=== PATIENT | female | born 1930 | race Caucasian/White ===

== ENCOUNTER 2017-03-11 16:15 | Inpatient (IN) ==
[2017-03-11] MEDS ORDERED: Azithromycin 500 MG in D5% in Water 250 ML IVPB ONE (16:47)
--- NOTE | 2017-03-11 16:58 | Emergency Department Note ---
Disposition Clinical Impression: Multifocal pneumonia Disposition: Admitted As Inpatient Condition: Fair General Adult HPI - General Chief complaint: ED General Medical Stated complaint: Generalized weakness Time Seen by Provider: 03/11/17 16:20 Source: patient, family Limitations: no limitations Nursing Notes Reviewed: Yes Vital Signs Reviewed: Yes - History of Present Illness HPI Narrative: 86-year-old female presents to the ED with generalized weakness via ambulance. Patient has no stated medical history and currently takes no medications. She is a very healthy and normally energetic female according to daughter. Patient states she has felt weak for the past few days to where she is unable to get out of bed even put her clothes on. She came in today because she was unable to get out of bed and cannot do her normal daily tasks. She states that she has had a cough for about a week and has been able to cough up some sputum some green some yellow and some clear says that it changes daily. Patient states she has no pain, no hemoptysis, no neuro deficits, no nausea vomiting, no headaches, no chest pain, no urinary problems or diarrhea. He has not had a fever states her highest temperature she has had is 99.1, 2 days ago. Pain Scale: 0 - Related Data Home Medications Medication Instructions Recorded Confirmed Cod Liver Oil 1 each PO DAILY 03/11/17 03/11/17 Krill Oil 500 mg PO DAILY 03/11/17 03/11/17 Multivitamin [Multi-Day Vitamins] 1 each PO DAILY 03/11/17 03/11/17 [place]-3 Fatty Acids [Fish Oil] 300 mg PO DAILY 03/11/17 03/11/17 Vitamin B Complex 1 each PO DAILY 03/11/17 03/11/17 Allergies Allergy/AdvReac Type Severity Reaction Status Date / Time No Known Allergies Allergy Verified 11/04/16 19:13 Constitutional: Reports: weakness, weight change (5lbs in 2 months). Denies: fever, chills Eyes: Denies: eye pain, eye discharge, vision change ENT ED: Denies: ear pain, throat pain, dental pain, hearing loss, epistaxis, congestion, dysphagia Cardiovascular: Denies: chest pain, palpitations, dyspnea on exertion, edema, syncope Respiratory: Reports: cough. Denies: wheezes, hemoptysis, stridor Gastrointestinal: Denies: abdominal pain, nausea, vomiting, diarrhea, constipation, hematemesis, melena, hematochezia Genitourinary: Reports: as per HPI. Denies: urgency, dysuria, frequency, hematuria Musculoskeletal: Denies: back pain, neck pain, arthralgia, myalgia Integumentary: Denies: rash, abrasion, lesions Neurological: Reports: weakness. Denies: headache, numbness, paresthesias, confusion, abnormal gait, vertigo Psychiatric: Denies: anxiety, depression, suicidal thoughts, homicidal thoughts , auditory hallucinations, visual hallucinations Endocrine: Reports: as per HPI, fatigue. Denies: heat or cold intolerance Hematological/Lymphatic: Denies: easy bleeding, easy bruising Past Medical History - Past Medical History Medical history: Reports: non-contributory Psychiatric history: Reports: no psych history - Social History Smoking Status: Former smoker Smokeless Tobacco Status: No Alcohol use: Reports: none Drug use: Reports: none Physical Exam - General Limitations: no limitations General appearance: alert, in no apparent distress - Head Head exam: atraumatic, normocephalic, normal inspection - Eye Eye exam: Present: normal appearance, PERRL - ENT ENT exam: mucous membranes moist, TM's normal bilaterally - Chest Chest inspection: Present: normal inspection, symmetric chest wall rise - Respiratory Respiratory exam: Present: normal lung sounds bilaterally. Absent: wheezes, stridor - Cardiovascular Cardiovascular exam: Present: regular rate, normal rhythm, normal heart sounds - Abdominal Exam Abdominal exam: Present: soft, Non-Tender. Absent: tenderness, distention, guarding, rebound, rigidity - Back Exam Back exam: Present: normal inspection, full ROM. Absent: tenderness - Neurological Exam Neurological exam: Present: alert, oriented X3 - Skin Skin exam: Present: warm, dry, intact, pallor Course Course Narrative: 86-year-old female presents to the ED with generalized weakness. With heart rate greater than 90 respirations at 35 she currently meets SIRS criteria will start sepsis protocol. We will order CBC, CM,P and lactate, BNP and ,chest x- ray, CT chest without contrast, blood cultures and start her on antibiotics 500 mg azithromycin and 1 g of ceftriaxone is probably community-acquired pneumonia. Vital Signs Temperature 98.3 F 03/11/17 16:17 Pulse Rate 123 03/11/17 16:17 Respiratory Rate 22 03/11/17 16:17 Blood Pressure 137/87 03/11/17 16:17 O2 Sat by Pulse Oximetry 98 03/11/17 16:17 Temperature 98.3 F 03/11/17 16:17 Pulse Rate 116 03/11/17 18:09 Respiratory Rate 24 03/11/17 19:24 Blood Pressure 139/73 03/11/17 18:09 O2 Sat by Pulse Oximetry 96 03/11/17 19:24 Oxygen Delivery Oxygen Delivery Nasal Cannula Medical Decision Making - MDM Narrative Medical decision making narrative: He 6-year-old female presents to the ED with generalized weakness. She currently has no medical problems and takes no medications. She meets sepsis criteria by being tachycardic at a rate of 123 and respirations greater than 30. We will start sepsis protocol and give her 500 mg of azithromycin and 1 g of ceftriaxone. Will order blood cultures. We will also fluid resuscitate her with 2000 mL IV bolus of normal saline. 1946-after evaluating the patient she stated that she is still tired and weak and still has a hard time breathing I ordered a DuoNeb and after that treatment she stated that she did feel a little bit better with her breathing and was coughing up a lot more green gunk. Patient's labs came back she has a white count of 19,000 and all other labs were relatively normal. Due to the CT scan coming back showing multifocal bilateral pneumonia the decision to admit was made. I talked with Dr. Pantoja who accepted the patient to telemetry. I told the patient this plan and her and family both agreed that this would be the best way to go forward. Chest X-Ray 03/11/17 16:35 IMPRESSION: Possible acute right lower lobe infiltrate which could represent pneumonia. Otherwise, stable chest D/ / Kyle Rose MD / Kyle Rose MD Interpreting Provider: Kyle Rose MD Chest CT 03/11/17 16:47 IMPRESSION: 1. Patchy bilateral areas of consolidation, most compatible with multifocal pneumonia. These must be followed resolution. 2. Findings are superimposed on a background of fibrosis, especially within the upper lungs. 3. Mild dilation of the ascending thoracic aorta measuring 4.1 cm, unchanged when compared to the previous exam D/ / Boogie Hudson MD / Boogie Hudson MD Interpreting Provider: Boogie Hudson MD - Medical Records Medical records reviewed: Yes I reviewed the patient's medical records. - Lab Data Lab results reviewed: Yes I reviewed the patient's lab results. Result diagrams: 03/11/17 17:32 03/11/17 17:32 Lab Results 03/11/17 03/11/17 03/11/17 Range/Units 17:32 17:32 17:32 WBC 19.0 H (4.3-11.1) K/mcL RBC 3.95 (3.82-4.97) M/mcL Hgb 12.5 (11.5-15.4) g/dL Hct 37.6 (35.3-44.9) % MCV 95.2 (83.0-100.0) fL MCH 31.6 (28.0-33.3) pg MCHC 33.2 (31.6-35.5) g/dL RDW 11.9 (11.5-14.5) % Plt Count 345 (140-400) K/mcL MPV 10.6 (9.4-12.4) fL Immature Gran % 0.6 (0-4) % Seg Neutrophils % 85.5 % Lymphocytes % 5.7 % Monocytes % 7.8 % Eosinophils % 0.1 % Basophils % 0.3 % Neutrophils # 16.3 H (1.6-8.9) K/mcL Lymphocytes # 1.1 (0.6-4.6) K/mcL Monocytes # 1.5 H (0.0-1.3) K/mcL Eosinophils # 0.0 (0.0-0.6) K/mcL Basophils # 0.1 (0.0-0.2) K/mcL VBG pH (7.32-7.42) pH Units VBG pCO2 (41-51) mmHg VBG pO2 (25-40) mmHg VBG HCO3 (21-27) mEq/L Sodium 136 (136-145) mEq/L Potassium 3.8 (3.5-4.5) mEq/L Chloride 103 (98-109) mEq/L Carbon Dioxide 23 (19-29) mEq/L BUN 7 (7-20) mg/dL Creatinine 0.70 (0.57-1.11) mg/dL Est GFR ( Amer) > 60 (> 60) Est GFR (Non-Af Amer) > 60 (> 60) BUN/Creatinine Ratio 10 (6-26) Glucose 146 H (70-99) mg/dL Calculated Osmolality 283 (280-300) Lactic Acid (0.5-2.2) mmol/L Calcium 9.8 (8.6-10.8) mg/dL Phosphorus (2.3-4.7) mg/dL Magnesium (1.6-2.6) mg/dL Total Bilirubin 0.6 (0.2-1.2) mg/dL Direct Bilirubin (0.0-0.5) mg/dL Indirect Bilirubin (0.0-1.2) mg/dL AST 38 H (5-34) Units/L ALT 37 (0-55) Units/L Alkaline Phosphatase 151 H (38-126) Units/L Troponin I 0.01 (0-0.03) ng/mL B-Natriuretic Peptide (0-100) pg/mL Serum Total Protein 7.0 (6.0-8.3) g/dL Albumin 2.5 L (3.5-5.0) g/dL Globulin 4.5 H (2.4-3.5) g/dL Albumin/Globulin Ratio 0.6 L (1.1-2.2) Urine Color (Yellow) Urine Clarity (Clear) Urine pH (5.0-8.0) pH Units Ur Specific [place] (1.010-1.025) Urine Protein (Neg-Trace) mg/dL Urine Glucose (UA) (Normal) mg/dL Urine Ketones (Negative) mg/dL Urine Blood (Negative) Urine Nitrite (Negative) Urine Bilirubin (Negative) Urine Urobilinogen (Normal) mg/dL Ur Leukocyte Esterase (Negative) Urine Microscopic RBC (0-3) per hpf Urine Microscopic WBC (0-3) per hpf Ur Squamous Epith Cells Urine Bacteria (None-Few) per hpf Hyaline Casts Ur Culture Indicated? (NO) 03/11/17 03/11/17 03/11/17 Range/Units 17:32 17:32 17:32 WBC (4.3-11.1) K/mcL RBC (3.82-4.97) M/mcL Hgb (11.5-15.4) g/dL Hct (35.3-44.9) % MCV (83.0-100.0) fL MCH (28.0-33.3) pg MCHC (31.6-35.5) g/dL RDW (11.5-14.5) % Plt Count (140-400) K/mcL MPV (9.4-12.4) fL Immature Gran % (0-4) % Seg Neutrophils % % Lymphocytes % % Monocytes % % Eosinophils % % Basophils % % Neutrophils # (1.6-8.9) K/mcL Lymphocytes # (0.6-4.6) K/mcL Monocytes # (0.0-1.3) K/mcL Eosinophils # (0.0-0.6) K/mcL Basophils # (0.0-0.2) K/mcL VBG pH (7.32-7.42) pH Units VBG pCO2 (41-51) mmHg VBG pO2 (25-40) mmHg VBG HCO3 (21-27) mEq/L Sodium (136-145) mEq/L Potassium (3.5-4.5) mEq/L Chloride (98-109) mEq/L Carbon Dioxide (19-29) mEq/L BUN (7-20) mg/dL Creatinine (0.57-1.11) mg/dL Est GFR ( Amer) (> 60) Est GFR (Non-Af Amer) (> 60) BUN/Creatinine Ratio (6-26) Glucose (70-99) mg/dL Calculated Osmolality (280-300) Lactic Acid 1.3 (0.5-2.2) mmol/L Calcium (8.6-10.8) mg/dL Phosphorus 2.7 (2.3-4.7) mg/dL Magnesium 1.7 (1.6-2.6) mg/dL Total Bilirubin 0.6 (0.2-1.2) mg/dL Direct Bilirubin 0.3 (0.0-0.5) mg/dL Indirect Bilirubin 0.3 (0.0-1.2) mg/dL AST 39 H (5-34) Units/L ALT 38 (0-55) Units/L Alkaline Phosphatase 154 H (38-126) Units/L Troponin I (0-0.03) ng/mL B-Natriuretic Peptide 25 (0-100) pg/mL Serum Total Protein 7.0 (6.0-8.3) g/dL Albumin 2.5 L (3.5-5.0) g/dL Globulin 4.5 H (2.4-3.5) g/dL Albumin/Globulin Ratio 0.6 L (1.1-2.2) Urine Color (Yellow) Urine Clarity (Clear) Urine pH (5.0-8.0) pH Units Ur Specific [place] (1.010-1.025) Urine Protein (Neg-Trace) mg/dL Urine Glucose (UA) (Normal) mg/dL Urine Ketones (Negative) mg/dL Urine Blood (Negative) Urine Nitrite (Negative) Urine Bilirubin (Negative) Urine Urobilinogen (Normal) mg/dL Ur Leukocyte Esterase (Negative) Urine Microscopic RBC (0-3) per hpf Urine Microscopic WBC (0-3) per hpf Ur Squamous Epith Cells Urine Bacteria (None-Few) per hpf Hyaline Casts Ur Culture Indicated? (NO) 03/11/17 03/11/17 03/11/17 Range/Units 17:32 19:20 19:32 WBC (4.3-11.1) K/mcL RBC (3.82-4.97) M/mcL Hgb (11.5-15.4) g/dL Hct (35.3-44.9) % MCV (83.0-100.0) fL MCH (28.0-33.3) pg MCHC (31.6-35.5) g/dL RDW (11.5-14.5) % Plt Count (140-400) K/mcL MPV (9.4-12.4) fL Immature Gran % (0-4) % Seg Neutrophils % % Lymphocytes % % Monocytes % % Eosinophils % % Basophils % % Neutrophils # (1.6-8.9) K/mcL Lymphocytes # (0.6-4.6) K/mcL Monocytes # (0.0-1.3) K/mcL Eosinophils # (0.0-0.6) K/mcL Basophils # (0.0-0.2) K/mcL VBG pH 7.30 L (7.32-7.42) pH Units VBG pCO2 49 (41-51) mmHg VBG pO2 44 H (25-40) mmHg VBG HCO3 24.1 (21-27) mEq/L Sodium (136-145) mEq/L Potassium (3.5-4.5) mEq/L Chloride (98-109) mEq/L Carbon Dioxide (19-29) mEq/L BUN (7-20) mg/dL Creatinine (0.57-1.11) mg/dL Est GFR ( Amer) (> 60) Est GFR (Non-Af Amer) (> 60) BUN/Creatinine Ratio (6-26) Glucose (70-99) mg/dL Calculated Osmolality (280-300) Lactic Acid 1.2 (0.5-2.2) mmol/L Calcium (8.6-10.8) mg/dL Phosphorus (2.3-4.7) mg/dL Magnesium (1.6-2.6) mg/dL Total Bilirubin (0.2-1.2) mg/dL Direct Bilirubin (0.0-0.5) mg/dL Indirect Bilirubin (0.0-1.2) mg/dL AST (5-34) Units/L ALT (0-55) Units/L Alkaline Phosphatase (38-126) Units/L Troponin I (0-0.03) ng/mL B-Natriuretic Peptide (0-100) pg/mL Serum Total Protein (6.0-8.3) g/dL Albumin (3.5-5.0) g/dL Globulin (2.4-3.5) g/dL Albumin/Globulin Ratio (1.1-2.2) Urine Color Yellow (Yellow) Urine Clarity Clear (Clear) Urine pH 6.5 (5.0-8.0) pH Units Ur Specific [place] 1.006 L (1.010-1.025) Urine Protein Trace (Neg-Trace) mg/dL Urine Glucose (UA) Normal (Normal) mg/dL Urine Ketones Trace H (Negative) mg/dL Urine Blood Small H (Negative) Urine Nitrite Negative (Negative) Urine Bilirubin Negative (Negative) Urine Urobilinogen Normal (Normal) mg/dL Ur Leukocyte Esterase Negative (Negative) Urine Microscopic RBC 0-3 (0-3) per hpf Urine Microscopic WBC 0-3 (0-3) per hpf Ur Squamous Epith Cells Test Not Performed Urine Bacteria Few (None-Few) per hpf Hyaline Casts Test Not Performed Ur Culture Indicated? NO (NO) - Radiology Data Radiology results reviewed: Yes I reviewed the patient's radiology results. - EKG Data EKG #1 EKG attestation: Yes I reviewed and interpreted this EKG. EKG results narrative: EEG done at 1625 shows sinus tachycardia rate of 123, MO 170 QRS 82 QTC 371. R- wave progression normal, no signs of ST elevation or ST changes. No T-wave changes. No signs of blocks. No signs of WPW or Brugada syndrome. Compared with old EKG on 03/20/13 which shows sinus bradycardia there are no acute changes when compared to the old one. EKG shows normal: sinus rhythm Rate: tachycardia Rhythm: NSR [place]/QRS: left axis deviation When compared to previous EKG there are: changes noted (Sinus tachycardia) Interpretation: no acute changes Attestation Statement - Attestation Attestation: I examined this patient and my medical decision-making was reviewed with the REBAR BENDER/PA/Advanced Practice Nurse/Resident Physician. I agree with the documented findings, disposition and treatment plan as described except to the extent set forth below. Female patient with multifocal pneumonia. Sepsis protocol was initiated. 30 mL per kilogram fluid boluses was initiated additionally she received over a fourth meter acquired pneumonia. Ceftriaxone and azithromycin. Cultures were sent. CT shows an confirmed multifocal pneumonia. Proceed with admission, vital signs have improved. Stable at time of admission with mild tachycardia.
[2017-03-11] MEDS: 0.9 % Sodium Chloride 1,000 ML IVC SCH ×2 (17:05→18:43)
[2017-03-11 17:43] LABS: VBG HCO3 24.1 mEq/L (21-27); VBG PH 7.3 pH Units (7.32-7.42)
[2017-03-11 17:50] LABS: Basophils # 0.1 K/mcL (0.0-0.2); Basophils % 0.3 %; Eosinophils % 0.1 %; Hematocrit 37.6 % (35.3-44.9); Hemoglobin 12.5 g/dL (11.5-15.4); Immature Granulocytes % 0.6 % (0-4); Lymphocytes # 1.1 K/mcL (0.6-4.6); Lymphocytes % 5.7 %; Mean Corpuscular HGB Conc 33.2 g/dL (31.6-35.5); Mean Corpuscular Hemoglobin 31.6 pg (28.0-33.3); Mean Corpuscular Volume 95.2 fL (83.0-100.0); Mean Platelet Volume 10.6 fL (9.4-12.4); Monocytes # 1.5 K/mcL (0.0-1.3); Monocytes % 7.8 %; Neutrophils # 16.3 K/mcL (1.6-8.9); Platelet Count 345 K/mcL (140-400); Red Blood Count 3.95 M/mcL (3.82-4.97); Red Cell Distribution Width 11.9 % (11.5-14.5); Segmented Neutrophils % 85.5 %
[2017-03-11 17:57] LABS: Albumin 2.5 g/dL (3.5-5.0); Albumin/Globulin Ratio 0.6 (1.1-2.2); Bilirubin,Direct 0.3 mg/dL (0.0-0.5); Bilirubin,Indirect 0.3 mg/dL (0.0-1.2); Bilirubin,Total 0.6 mg/dL (0.2-1.2); Globulin 4.5 g/dL (2.4-3.5); Magnesium 1.7 mg/dL (1.6-2.6); Phosphorous 2.7 mg/dL (2.3-4.7)
[2017-03-11 17:58] LABS: Alanine Aminotransferase 37 Units/L (0-55); Albumin 2.5 g/dL (3.5-5.0); Albumin/Globulin Ratio 0.6 (1.1-2.2); Alkaline Phosphatase 151 Units/L (38-126); Aspartate Amino Transferase 38 Units/L (5-34); BUN/Creatinine Ratio 10 (6-26); Bilirubin,Total 0.6 mg/dL (0.2-1.2); Blood Urea Nitrogen 7 mg/dL (7-20); Calcium 9.8 mg/dL (8.6-10.8); Carbon Dioxide 23 mEq/L (19-29); Chloride 103 mEq/L (98-109); Globulin 4.5 g/dL (2.4-3.5); Glucose 146 mg/dL (70-99); Osmolality,Calculated 283 (280-300); Potassium 3.8 mEq/L (3.5-4.5); Sodium 136 mEq/L (136-145); eGFR For African Americans > 60 (> 60); eGFR For Non-African Americans > 60 (> 60)
[2017-03-11] MEDS ORDERED: Ipratropium/Albuterol Neb 3 ML IH ONE (18:52)
[2017-03-11 19:37] LABS: Bilirubin,Urine Negative (Negative); Blood,Urine Small (Negative); Clarity,Urine Clear (Clear); Color,Urine Yellow (Yellow); Glucose,Urine (UA) Normal (Normal); Ketones,Urine Trace mg/dL (Negative); Leukocyte Esterase,Urine Negative (Negative); Nitrite,Urine Negative (Negative); PH,Urine 6.5 pH Units (5.0-8.0); Protein,Urine Trace mg/dL (Neg-Trace); Specific Gravity,Urine 1.006 (1.010-1.025); Urobilinogen,Urine Normal (Normal)
[2017-03-11 19:56] LABS: Bacteria,Urine Few per hpf (None-Few); RBC,Urine 0-3 per hpf (0-3); WBC,Urine 0-3 per hpf (0-3)
--- NOTE | 2017-03-11 22:56 | Internal Med History&Physical ---
<ZarateLuis Alberto - Last Filed: 03/11/17 23:50> Date of Encounter: 03/11/17 Time of Encounter: 22:53 Assessment and Plan (1) Multifocal pneumonia Current visit: Yes Status: Acute As confirmed by chest CT, she has multilobar pnuemonia She did receive Rocephin and Zithromax in the ED, which we will continue here to treat community acquired pneumonia No lactic acidosis nor signs of end organ dysfunction; does not make her eligible for sepsis Blood cultures collected, await results and sensitivities prior to de- escalation of antibiotic regimen Supportive measures with breathing treatments and Robitussin as needed (2) Aortic stenosis with bicuspid valve Current visit: Yes Status: Chronic Last echo performed in June 2015 confirmed moderate-severe aortic stenosis with preserved EF; she was recommended to get a LEONARD for further evaluation but declined the procedure No signs of overt heart failure at this point, so will have her continue her home ASA (3) DVT prophylaxis Current visit: Yes Status: Acute Heparin 5000 units BID Internal Medicine - H&P: HPI Chief complaint: generalized weakness Admitted From: Home Plans for Post Hospital Care: Home History of present illness: Ms. Schofield is a 86 year old female who presents to the emergency department with generalized weakness over the past week. She states that the weakness has been gradually worsening and she has an associated productive cough of green and yellow sputum during this time as well. She states that she gets "muscle pain" when she coughs. Denies any shortness of breath, nausea, vomiting, fevers, or urinary complaints. Patient is normally very healthy and only takes aspirin and multivitamins. She denies any sick contacts or recent travels. She does report hospitalization for pneumonia 4 years ago and feels this episode is similar to when she had pneumonia in the past. Patient lives at home with her daughter and is independent in activities daily life and has no issues with ambulation. Past Med Surg Social Fam HX - Past Medical History Medical history: non-contributory Psychiatric history: no psych history - Past Surgical History Surgical History: hysterectomy - Social History Smoking Status: Former smoker Smokeless Tobacco Status: No Alcohol use: none Drug use: none Internal Medicine - H&P: Meds Cod Liver Oil 1 each PO DAILY 03/11/17 [History] Krill Oil 500 mg PO DAILY 03/11/17 [History] Multivitamin [Multi-Day Vitamins] 1 each PO DAILY 03/11/17 [History] [place]-3 Fatty Acids [Fish Oil] 300 mg PO DAILY 03/11/17 [History] Vitamin B Complex 1 each PO DAILY 03/11/17 [History] Allergies No Known Allergies Allergy (Verified 11/04/16 19:13) All Systems PM: A 10-system review of systems was performed and is negative for pertinent findings except as documented above in the HPI. - Constitutional Constitutional: weakness (generalized), no chills, no fever(s), no night sweats - EENT Eyes: no change in vision, no discharge, no pain, no photophobia Ears: no ear discharge, no ear pain, no tinnitus Nose, mouth and throat: no dysphagia, no nasal discharge, no neck pain, no sore throat - Cardiovascular Cardiovascular ROS IM: no chest pain, no diaphoresis, no dyspnea, no lightheadedness, no palpitations, no syncope - Respiratory Respiratory: cough, excessive phlegm production, change in phlegm color, pain with cough, no dyspnea, no wheezing - Gastrointestinal Gastrointestinal: diarrhea, no abdominal pain, no hematemesis, no hematochezia, no melena, no nausea, no vomiting - Genitourinary Genitourinary: no change in urinary stream, no dysuria, no flank pain, no hematuria - Musculoskeletal Musculoskeletal ROS IM: no numbness, no tingling - Integumentary Integumentary IM: no rash, no unusual bruising - Neurological Neurological ROS: no confusion, no convulsions, no focal weakness, no numbness, no tingling, no tremor(s) - Constitutional Vitals: Temp Pulse Resp BP Pulse Ox 98.9 F 102 14 129/74 98 03/11/17 21:59 03/11/17 21:59 03/11/17 21:59 03/11/17 21:59 03/11/17 21:59 General appearance: Present: cooperative, pleasant, no acute distress, answers questions appropriately - Head Head exam: Present: atraumatic, normocephalic - Eye Eye exam: Present: PERRL, conjuntiva pink, sclera anicteric - Neck Neck exam general surgery: Present: supple, trachea midline. Absent: lymphadenopathy - Respiratory Respiratory exam: Present: wheezes. Absent: accessory muscle use, rales, rhonchi - Cardiovascular Cardiovascular exam: Present: +S1, +S2, tachycardia. Absent: diastolic murmur, gallop, rubs, systolic murmur - GI/Abdominal GI/Abdominal exam: Present: normal bowel sounds, soft, no peritoneal signs. Absent: distended, tenderness - Extremities Exam Extremities exam: Present: warm, radial pulses palpable and symetrical. Absent : calf tenderness, cyanotic, pedal edema - Neurological Exam Neurological exam: Present: alert, no focal deficits. Absent: facial droop, speech deficit - Skin Skin exam: Present: dry, intact Internal Med - H&P Results - Labs CBC & Chem 7: 03/11/17 17:32 03/11/17 17:32 <Brandon Pantoja - Last Filed: 03/12/17 02:26> Date of Encounter: 03/12/17 Past Med Surg Social Fam HX - Family History Mother Living Status: Hx Family Cardiac Disorders: No Hx Family Respiratory Disorders: No Father Living Status: Hx Family Cardiac Disorders: No Hx Family Respiratory Disorders: No - Constitutional Constitutional: chills, weakness, no fever(s), no night sweats - EENT Eyes: no blurry vision, no change in vision Ears: no ear pain, no tinnitus Nose, mouth and throat: nasal congestion, sinus pressure - Cardiovascular Cardiovascular ROS IM: no chest pain, no syncope - Respiratory Respiratory: cough, chest congestion, excessive phlegm production, change in phlegm color, pain with cough - Gastrointestinal Gastrointestinal: diarrhea, no abdominal pain, no nausea, no vomiting - Genitourinary Genitourinary: no dysuria - Musculoskeletal Musculoskeletal ROS IM: no arthralgias, no back pain - Neurological Neurological ROS: no dizziness, no focal weakness, no frequent falls - Psychiatric Psychiatric: no anxiety, no depression - Endocrine Endocrine IM: no cold intolerance, no heat intolerance - Hematologic/Lymphatic Hematologic/Lymphatic: no easy bruising, no lymphadenopathy - Allergic/Immunologic Allergic/Immunologic: wheezing, no uticaria, no GI upset with certain foods - Constitutional Vitals: Temp Pulse Resp BP Pulse Ox 98.9 F 102 14 129/74 98 03/11/17 21:59 03/11/17 21:59 03/11/17 21:59 03/11/17 21:59 03/11/17 22:42 General appearance: Present: cooperative, A&O X 3, pleasant, no acute distress - Head Head exam: Present: normal inspection - Eye Eye exam: Present: EOMI, PERRL. Absent: scleral icterus - ENT ENT exam: Present: mucous membranes moist, normal exam - Neck Neck exam general surgery: Present: full ROM, supple. Absent: tenderness - Expanded Neck Exam Neck exam: Absent: carotid bruit - Respiratory Respiratory exam: Present: rales (left base and RUL ), wheezes. Absent: chest wall tenderness, CTAB, respiratory distress, tachypnea - Cardiovascular Cardiovascular exam: Present: RRR, +S1, +S2. Absent: JVD - GI/Abdominal GI/Abdominal exam: Present: normal bowel sounds, soft. Absent: hepatomegaly, splenomegaly, tenderness - Extremities Exam Extremities exam: Present: warm. Absent: pedal edema, tenderness - Back Exam Back exam: Present: normal inspection. Absent: CVA tenderness (L), CVA tenderness (R) - Neurological Exam Neurological exam: Present: alert, CN II-XII intact, oriented X3, no focal deficits - Psychiatric Psychiatric exam: Present: normal affect, normal mood - Skin Skin exam: Present: dry, warm. Absent: rash Internal Med - H&P Results - Labs CBC & Chem 7: 03/11/17 17:32 03/11/17 17:32 - Diagnostic Studies Chest x-ray Status: image reviewed by me (hyperinflated; borderline cardiomegaly; I do not appreciate significant infiltrates) CT scan - chest Additional comments: Report reviewed -- multifocal pneumonia - Attending Attestation I discussed the patient KALSKAG, PMH, ROS, lab data, and exam findings with Dr. Zarate. I then saw and examined patient independently as well. Patient admits to having SOB, productive cough, and chills for the last week or so. She denies any fevers or night sweats. She has had increasing weakness and fatigue since then, which prompted her to go to the ER. She is a former smoker and quit many years ago (>40 years ago). On exam, she has crackles and splinting consistent with pneumonia. She has no clinical signs of sepsis in my opinion, and I agree with Dr. Zarate. She is hopeful to be discharged soon and return to her daily activities. Other than my comments noted above and noted exam findings, I agree with Dr. Zarate's assessment and plan.
[2017-03-11] MEDS ORDERED: Acetaminophen 325 MG TABLET PO PRN (23:13)
[2017-03-11] MEDS ORDERED: Naloxone 0.4 MG/ML INJ IVP PRN (23:13)
[2017-03-11] MEDS ORDERED: Ondansetron ODT 4 MG TAB.RAPDIS SL PRN (23:13)
[2017-03-11] MEDS ORDERED: Ipratropium/Albuterol Neb 3 ML IH PRN (23:20)
[2017-03-12] MEDS: *HR* Heparin 5,000 UNIT/ML VIAL SQ SCH ×2 (05:39→16:59)
[2017-03-12 06:00] LABS: Basophils % 0.2 %; Eosinophils # 0.1 K/mcL (0.0-0.6); Eosinophils % 0.3 %; Hematocrit 37.1 % (35.3-44.9); Hemoglobin 11.9 g/dL (11.5-15.4); Immature Granulocytes % 0.7 % (0-4); Lymphocytes # 1.4 K/mcL (0.6-4.6); Lymphocytes % 7.9 %; Mean Corpuscular HGB Conc 32.1 g/dL (31.6-35.5); Mean Corpuscular Hemoglobin 30.4 pg (28.0-33.3); Mean Corpuscular Volume 94.9 fL (83.0-100.0); Mean Platelet Volume 11.2 fL (9.4-12.4); Monocytes # 1.4 K/mcL (0.0-1.3); Neutrophils # 14.7 K/mcL (1.6-8.9); Platelet Count 327 K/mcL (140-400); Red Blood Count 3.91 M/mcL (3.82-4.97); Segmented Neutrophils % 82.9 %
[2017-03-12 06:14] LABS: BUN/Creatinine Ratio 7 (6-26); Blood Urea Nitrogen 4 mg/dL (7-20); Calcium 9.4 mg/dL (8.6-10.8); Carbon Dioxide 26 mEq/L (19-29); Chloride 107 mEq/L (98-109); Glucose 114 mg/dL (70-99); Osmolality,Calculated 286 (280-300); Potassium 3.6 mEq/L (3.5-4.5); Sodium 139 mEq/L (136-145); eGFR For African Americans > 60 (> 60); eGFR For Non-African Americans > 60 (> 60)
[2017-03-12 06:42] LABS: Large Platelets Present (Not Present); Platelet Estimate Normal (Normal); Reactive Lymphocytes Present (Not Present); Toxic Granulation Present (Not Present)
[2017-03-12] MEDS: Aspirin Enteric Coated 81 MG Tablet PO SCH (08:33)
--- NOTE | 2017-03-12 10:09 | Electrocardiograph Report ---
[address] [address] Test Date: 2017-03-11 Pat Name: Aissatou Schofield Department: [id number] Room: 3A Gender: F Machine Stitcher: AMELIA : 1930 Requested By: Quique Kaminski Order Number: [id number] Reading MD: Clara Huddleston Measurements Intervals [place] Rate: 123 P: 86 IA: 170 QRS: -48 QRSD: 82 T: 70 QT: 298 QTc: 371 Interpretive Statements SINUS TACHYCARDIA LEFT ANTERIOR FASCICULAR BLOCK Electronically Signed On 03-12-2017 10:08:15 EDT by Clara Huddleston
--- NOTE | 2017-03-12 11:59 | Internal Med Progress Note ---
Date of Encounter: 03/12/17 Time of Encounter: 11:57 - Assessment and plan (1) SIRS (systemic inflammatory response syndrome) Current Visit: Yes Status: Acute Assessment and plan: Pt does meet SIRS criteria with leukocytosis, sinus tachycardia and source of inf as PNA cont empirical abx cont close monitoring her symptoms (2) Acute respiratory failure with hypoxia Current Visit: Yes Status: Acute Assessment and plan: Due to MLL PNA Improving now off the O2 Cont duoneb and abx no need of steroids (3) Multifocal pneumonia Current Visit: Yes Status: Acute Assessment and plan: Mostly bacterial ..also concerned for aspiration risk with possible GERD since she did mention some GERD symptoms will f/u on sputum cx Cont empirical abx Rocephin and Azithromycin Cont duoneb and O2 Will start her on PPI too patient does need to stay in the hospital more than 2 nights due to her complex medical problems with high risk of respiratory failure, so will change her to full admission today. I did review my colleague Dr. Luis Alberto Zarate's H & P including HPI, PMH, PSH, SH, Fh and ROS, no changes noticed (4) Aortic stenosis with bicuspid valve Current Visit: Yes Status: Chronic Assessment and plan: Last echo performed in June 2015 confirmed moderate-severe aortic stenosis with preserved EF Will repeat another 2 D Echo today cont ASA (5) DVT prophylaxis Current Visit: Yes Status: Acute Assessment and plan: on SQ Heparin - Subjective Interval history: Ms. Schofield is a 86 year old female who presented to the emergency department with generalized weakness over the past week which gradually worsening and she has an associated productive cough of green and yellow sputum during this time as well. Pt happened to have multi focal pneumonia. Now she is more alert, awake and O x3, denied any CP. Still has Cough with greenish expectoration. - Constitutional Vitals: Temp Pulse Resp BP Pulse Ox 98.5 F 60 16 135/64 98 03/12/17 10:56 03/12/17 10:56 03/12/17 10:56 03/12/17 10:56 03/12/17 10:56 General appearance: Present: cooperative, A&O X 3, pleasant, no acute distress - Respiratory Respiratory exam: Present: decreased breath sounds. Absent: rales, respiratory distress, rhonchi, wheezes - Cardiovascular Cardiovascular exam: Present: RRR, +S1, +S2, systolic murmur. Absent: gallop - GI/Abdominal GI/Abdominal exam: Present: soft. Absent: mass, tenderness - Extremities Exam Extremities exam: Absent: pedal edema - Psychiatric Psychiatric exam: Present: normal affect, normal mood - Skin Skin exam: Present: dry, intact Internal Medicine: Result - Labs CBC & Chem 7: 03/12/17 05:10 03/12/17 05:10 Labs: Short CBC 03/12/17 Range/Units 05:10 WBC 17.7 H (4.3-11.1) K/mcL Hgb 11.9 (11.5-15.4) g/dL Hct 37.1 (35.3-44.9) % Plt Count 327 (140-400) K/mcL Neutrophils # 14.7 H (1.6-8.9) K/mcL BMP 03/12/17 05:10 Sodium 139 Potassium 3.6 Chloride 107 Carbon Dioxide 26 BUN 4 L Creatinine 0.60 Glucose 114 H Calcium 9.4 Consult Discharge Plan - Plan Referrals: Cody Hernandez MD [Primary Care Provider] -
[2017-03-12] MEDS: Azithromycin 500 MG in D5% in Water 250 ML IVPB SCH (16:23)
[2017-03-13] MEDS: *HR* Heparin 5,000 UNIT/ML VIAL SQ SCH ×2 (06:30→17:27)
[2017-03-13] MEDS: Aspirin Enteric Coated 81 MG Tablet PO SCH (09:27)
--- NOTE | 2017-03-13 11:05 | Internal Med Progress Note ---
Date of Encounter: 03/13/17 Time of Encounter: 11:03 - Assessment and plan (1) SIRS (systemic inflammatory response syndrome) Current Visit: Yes Status: Acute Assessment and plan: Pt does meet SIRS criteria with leukocytosis, sinus tachycardia and source of inf as PNA no change noticed cont empirical abx cont close monitoring her symptoms (2) Acute respiratory failure with hypoxia Current Visit: Yes Status: Acute Assessment and plan: Due to MLL PNA no change noticed now off the O2 Cont duoneb and abx since pt does have more wheezing today started her on IV steroids at low dose today (3) Multifocal pneumonia Current Visit: Yes Status: Acute Assessment and plan: Mostly bacterial ..also concerned for aspiration risk with possible GERD since she did mention some GERD symptoms will f/u on sputum cx blood cx - no growth Cont empirical abx Rocephin and Azithromycin Cont duoneb and O2 Cont PPI (4) Hypertension Current Visit: Yes Status: Acute Assessment and plan: Resumed home med Metoprolol 25mg BID today Qualifiers: Hypertension type: essential hypertension Qualified Code(s): I10 - Essential (primary) hypertension (5) Aortic stenosis with bicuspid valve Current Visit: Yes Status: Chronic Assessment and plan: Last echo performed in June 2015 confirmed moderate-severe aortic stenosis with preserved EF Will repeat another 2 D Echo cont ASA and B dorie (6) DVT prophylaxis Current Visit: Yes Status: Acute Assessment and plan: on SQ Heparin - Subjective Interval history: Ms. Schofield is a 86 year old female who presented to the emergency department with generalized weakness over the past week which gradually worsening and she has an associated productive cough of green and yellow sputum during this time as well. Pt happened to have multi focal pneumonia. Now she is more alert, awake and O x3, denied any CP. Still has Cough with greenish expectoration. She feels more SOB and ORELLANA today - Constitutional Vitals: Temp Pulse Resp BP Pulse Ox 97.7 F 118 17 177/81 94 03/13/17 10:55 03/13/17 10:55 03/13/17 10:55 03/13/17 10:55 03/13/17 10:55 General appearance: Present: cooperative, A&O X 3, pleasant, no acute distress - Respiratory Respiratory exam: Present: decreased breath sounds, rhonchi, wheezes. Absent: rales, respiratory distress - Cardiovascular Cardiovascular exam: Present: RRR, +S1, +S2, systolic murmur - GI/Abdominal GI/Abdominal exam: Present: normal bowel sounds, soft. Absent: guarding, rebound, rigid, tenderness - Extremities Exam Extremities exam: Absent: calf tenderness, pedal edema Internal Medicine: Result - Labs CBC & Chem 7: 03/12/17 05:10 03/12/17 05:10 Consult Discharge Plan - Plan Referrals: Cody Hernandez MD [Primary Care Provider] - 03/21/17 10:30 am
[2017-03-13] MEDS: MethylPREDNISolone 40 MG/ML VIAL IVP SCH ×2 (12:04→17:28)
[2017-03-13] MEDS: Azithromycin 500 MG in D5% in Water 250 ML IVPB SCH (17:28)
[2017-03-14] MEDS: MethylPREDNISolone 40 MG/ML VIAL IVP SCH ×3 (00:02→20:00)
[2017-03-14] MEDS: *HR* Heparin 5,000 UNIT/ML VIAL SQ SCH ×2 (06:15→19:00)
[2017-03-14] MEDS: Aspirin Enteric Coated 81 MG Tablet PO SCH (08:14)
--- NOTE | 2017-03-14 11:02 | Internal Med Progress Note ---
Date of Encounter: 03/14/17 Time of Encounter: 11:00 - Assessment and plan (1) SIRS (systemic inflammatory response syndrome) Current Visit: Yes Status: Acute Assessment and plan: due to MLL PNA improving cont empirical abx cont close monitoring her symptoms (2) Acute respiratory failure with hypoxia Current Visit: Yes Status: Acute Assessment and plan: Due to MLL PNA improving now off the O2 Cont duoneb and abx will start tapering steroids (3) Multifocal pneumonia Current Visit: Yes Status: Acute Assessment and plan: Mostly bacterial ..also concerned for aspiration risk with possible GERD since she did mention some GERD symptoms sputum cx - P blood cx - no growth Cont empirical abx Rocephin and Azithromycin Cont duoneb and O2 Cont PPI (4) Hypertension Current Visit: Yes Status: Acute Assessment and plan: Resumed home med Metoprolol 25mg BID today Qualifiers: Hypertension type: essential hypertension Qualified Code(s): I10 - Essential (primary) hypertension (5) Aortic stenosis with bicuspid valve Current Visit: Yes Status: Chronic Assessment and plan: Reviewed 2 D Echo showed normal LVEF 55% moderate noticed cont ASA and B dorie (6) DVT prophylaxis Current Visit: Yes Status: Acute Assessment and plan: on SQ Heparin - Subjective Interval history: Ms. Schofield is a 86 year old female who presented to the emergency department with generalized weakness over the past week which gradually worsening and she has an associated productive cough of green and yellow sputum during this time as well. Pt happened to have multi focal pneumonia. Now she is more alert, awake and O x3, denied any CP. Still has Cough with greenish expectoration. overall feels better today. Still has some ORELLANA but no SOB at resting - Constitutional Vitals: Temp Pulse Resp BP Pulse Ox 97.7 F 87 18 145/71 93 03/14/17 07:16 03/14/17 07:16 03/14/17 07:16 03/14/17 07:16 03/14/17 07:16 General appearance: Present: cooperative, A&O X 3, pleasant, no acute distress - Respiratory Respiratory exam: Present: decreased breath sounds, wheezes. Absent: rales, respiratory distress, rhonchi - Cardiovascular Cardiovascular exam: Present: RRR, +S1, +S2, systolic murmur. Absent: gallop, rubs - GI/Abdominal GI/Abdominal exam: Present: normal bowel sounds, soft. Absent: distended, tenderness - Extremities Exam Extremities exam: Absent: calf tenderness, pedal edema, tenderness - Psychiatric Psychiatric exam: Present: normal affect, normal mood Internal Medicine: Result - Labs CBC & Chem 7: 03/12/17 05:10 03/12/17 05:10 - VTE Documentation of Mechanical Device: Intermittent pneumatic compression device Consult Discharge Plan - Plan Referrals: Cody Hernandez MD [Primary Care Provider] - 03/21/17 10:30 am
[2017-03-14 11:40] LABS: Basophils % 0.2 %; Hematocrit 39.4 % (35.3-44.9); Hemoglobin 12.8 g/dL (11.5-15.4); Immature Granulocytes % 1.1 % (0-4); Lymphocytes % 5.9 %; Mean Corpuscular HGB Conc 32.5 g/dL (31.6-35.5); Mean Corpuscular Hemoglobin 30.5 pg (28.0-33.3); Mean Platelet Volume 10.4 fL (9.4-12.4); Monocytes # 0.7 K/mcL (0.0-1.3); Monocytes % 4.1 %; Neutrophils # 15.4 K/mcL (1.6-8.9); Platelet Count 541 K/mcL (140-400); Red Blood Count 4.19 M/mcL (3.82-4.97); Segmented Neutrophils % 88.7 %
[2017-03-14] MEDS: Azithromycin 500 MG in D5% in Water 250 ML IVPB SCH (17:35)
[2017-03-14] MEDS ORDERED: amLODIPine 5 MG TABLET PO ONE (17:49)
[2017-03-15] MEDS: *HR* Heparin 5,000 UNIT/ML VIAL SQ SCH (05:20)
[2017-03-15 06:24] LABS: Basophils % 0.1 %; Hematocrit 38.2 % (35.3-44.9); Hemoglobin 12.7 g/dL (11.5-15.4); Immature Granulocytes % 0.8 % (0-4); Lymphocytes # 1.6 K/mcL (0.6-4.6); Lymphocytes % 9.6 %; Mean Corpuscular HGB Conc 33.2 g/dL (31.6-35.5); Mean Corpuscular Hemoglobin 31.3 pg (28.0-33.3); Mean Corpuscular Volume 94.1 fL (83.0-100.0); Mean Platelet Volume 11.9 fL (9.4-12.4); Monocytes # 0.9 K/mcL (0.0-1.3); Neutrophils # 14.3 K/mcL (1.6-8.9); Platelet Count 406 K/mcL (140-400); Red Blood Count 4.06 M/mcL (3.82-4.97); Red Cell Distribution Width 12.2 % (11.5-14.5); Segmented Neutrophils % 84.5 %
[2017-03-15 06:41] VITALS: BP 149/78
[2017-03-15] MEDS: Aspirin Enteric Coated 81 MG Tablet PO SCH (09:18)
[2017-03-15] MEDS: MethylPREDNISolone 40 MG/ML VIAL IVP SCH (09:19)
--- NOTE | 2017-03-15 09:24 | Discharge Summary ---
Date of Encounter: 03/15/17 Time of Encounter: 09:19 - Discharge Diagnosis (1) SIRS (systemic inflammatory response syndrome) Priority: Primary Status: Acute (2) Acute respiratory failure with hypoxia Priority: Primary Status: Acute (3) Multifocal pneumonia Priority: Primary Status: Acute (4) Hypertension Priority: Secondary Status: Acute Qualifiers: Hypertension type: essential hypertension Qualified Code(s): I10 - Essential (primary) hypertension (5) Aortic stenosis with bicuspid valve Priority: Secondary Status: Chronic (6) GERD (gastroesophageal reflux disease) Priority: Secondary Status: Acute Qualifiers: Qualified Code(s): K21.9 - Gastro-esophageal reflux disease without esophagitis - Discharge Medications Prescriptions: Albuterol Sulfate [Proair Hfa] 2 puff IH Q6H PRN #1 inh PRN Reason: Shortness Of Breath amLODIPine [Norvasc] 5 mg PO DAILY #30 tablet Guaifenesin [Mucinex] 600 mg PO BID #14 tab.er.12h levoFLOXacin [Levofloxacin] 500 mg PO DAILY #2 tablet Metoprolol [Lopressor] 25 mg PO BID #60 tab Omeprazole [PriLOSEC] 20 mg PO DAILY@0630 #30 predniSONE [PredniSONE] 40 mg PO DAILY #10 tablet Home Medications: Cod Liver Oil 1 each PO DAILY 03/11/17 [History] Krill Oil 500 mg PO DAILY 03/11/17 [History] Multivitamin [Multi-Day Vitamins] 1 each PO DAILY 03/11/17 [History] [place]-3 Fatty Acids [Fish Oil] 300 mg PO DAILY 03/11/17 [History] Vitamin B Complex 1 each PO DAILY 03/11/17 [History] Albuterol Sulfate [Proair Hfa] 2 puff IH Q6H PRN #1 inh 03/14/17 [Rx] Guaifenesin [Mucinex] 600 mg PO BID #14 tab.er.12h 03/14/17 [Rx] Metoprolol [Lopressor] 25 mg PO BID #60 tab 03/14/17 [Rx] Omeprazole [PriLOSEC] 20 mg PO DAILY@0630 #30 03/14/17 [Rx] levoFLOXacin [Levofloxacin] 500 mg PO DAILY #2 tablet 03/14/17 [Rx] predniSONE [PredniSONE] 40 mg PO DAILY #10 tablet 03/14/17 [Rx] amLODIPine [Norvasc] 5 mg PO DAILY #30 tablet 03/15/17 [Rx] Allergies/Adverse Reactions: Allergies No Known Allergies Allergy (Verified 11/04/16 19:13) Procedures/tests Complete & Pending: Procedures Performed prior 72 hours Category Date Time Status EV echocardiogram Stat Y 03/13/17 10:44 Completed Date of admission: 03/12/17 11:52 Primary care physician: Cody Hernandez MD Anticipated date of discharge: 03/15/17 - Patient Status Disposition: Home, Self-Care Condition: Fair - Discharge Instructions Follow Up With: Cody Hernandez MD [Primary Care Provider] - 03/21/17 10:30 am - Diet and Activity Activity: increase activity as tolerated Diet: advance to your usual diet Hospital course: Ms. Schofield is a 86 year old female who presented to the emergency department with generalized weakness over the past week which gradually worsening and she has an associated productive cough of green and yellow sputum during this time as well. Pt happened to have multi focal pneumonia. Pt was admitted in the hospital and started her on empirical abx with Azithromycin and Rocephin. Initially she was need O2 too, eventually she came off the O2. She was also required low dose IV steroids. Her symptoms started improving slowly, so started tapering her steroids. It seems to pt does have bacterial multi focal PNA, with underling aspiration risk due to GERD. So I started her on PPI, since then her symptoms are lot better. She breathing comfortably on RA, remained afebrile through out this hospitalization. Slightly elevated WBC noticed mostly reactive, however her WBC also started trending down. Will d/c her home today in stable condition. - Time Spent with Patient Total time spent providing and/or coordinating discharge services: - Constitutional Vitals: Temp Pulse Resp BP Pulse Ox 97.7 F 88 18 149/78 96 03/15/17 06:36 03/15/17 06:36 03/15/17 06:36 03/15/17 06:36 03/15/17 06:36 General appearance: Present: cooperative, A&O X 3, pleasant, no acute distress - Respiratory Respiratory exam: Present: decreased breath sounds, wheezes. Absent: rales, respiratory distress, rhonchi - Cardiovascular Cardiovascular exam: Present: +S1, +S2, systolic murmur. Absent: gallop - GI/Abdominal GI/Abdominal exam: Present: normal bowel sounds, soft. Absent: distended - Extremities Exam Extremities exam: Absent: calf tenderness, pedal edema, tenderness - Psychiatric Psychiatric exam: Present: normal affect, normal mood - VTE Documentation of Mechanical Device: Intermittent pneumatic compression device
[2017-03-15] MEDS ORDERED: amLODIPine 5 MG TABLET PO SCH (09:30)
[2017-03-15] MEDS ORDERED: amLODIPine 5 MG TABLET PO ONE (17:49)
== END 2017-03-15 14:18 | disposition home or self-care (01) | DRG 193 ==
LOC: EMEROO 16:15 → 3ANU 16:15
PROVIDERS: ADMIT Pediatrics; ATTEND Family Medicine